=== PATIENT | male | born 1980 | race Caucasian/White ===

== ENCOUNTER 2018-07-24 07:50 | Emergency (ER) | payer MEDICAID ==
[~2018-07-24] VITALS: Ht 175.3 cm; Wt 125.0 kg
[2018-07-24 08:02] VITALS: Ht 175.3 cm; Wt 125.0 kg
[2018-07-24 08:37] LABS: APPEARANCE CLEAR (CLEAR); BILIRUBIN NEGATIVE (NEGATIVE); COLOR YELLOW (YELLOW); GLUCOSE NEGATIVE (NEGATIVE); KETONE NEGATIVE (NEGATIVE); NITRITE NEGATIVE (NEGATIVE); PROTEIN NEGATIVE (NEGATIVE); RED CELLS - URINE 0-5 /hpf (0-5); UROBILINOGEN NORMAL (NORMAL); WHITE CELLS - URINE RARE /hpf (0-5)
[2018-07-24 09:14] LABS: BASOPHILS 0.1 % (0-2); EOSINOPHILS 0.4 % (0-7); HEMOGLOBIN 16.4 g/dL (13.5-17.5); IMMATURE GRANULOCYTES 0.3 % (0-5); LYMPHOCYTES 13.9 % (15-50); MCH 30.1 pg (26.0-34.0); MCHC 35.7 g/dL (31.0-37.0); MCV 84.6 fL (80.0-100.0); MEAN PLATELET VOLUME 10.1 fL (7.4-10.4); MONOCYTES 4.3 % (2-11); PLATELET COUNT 173 10x3/uL (130-400); RBC 5.44 10x6/uL (4.20-6.10); RDW 12.9 % (11.5-14.5); WBC 7.7 10x3/uL (4.8-10.8)
[2018-07-24 09:47] LABS: ALBUMIN 3.6 g/dL (3.4-5.0); ANION GAP 13.8 mmol/L (8-16); BILIRUBIN - TOTAL 0.39 mg/dL (0.2-1.3); CALCIUM 8.8 mg/dL (8.5-10.1); CARBON DIOXIDE 25.7 mmol/L (21.0-32.0); CREATININE - SERUM 1.2 mg/dL (0.6-1.3); POTASSIUM - SERUM 4.5 mmol/L (3.5-5.1); PROTEIN - SERUM 7.6 g/dL (6.4-8.2)
[2018-07-24] MEDS ORDERED: HYDROCODON-ACE1 EAC7 PO (11:07)
[2018-07-24 11:28] VITALS: BP 160/80
== END 2018-07-24 11:29 | disposition home or self-care (01) ==
LOC: D.ER 07:50
PROVIDERS: Family Medicine
DX: N20.1 Calculus of ureter (principal); R73.9 Hyperglycemia, unspecified

== ENCOUNTER 2018-07-29 12:33 | Observation (INO) | payer MEDICAID ==
[~2018-07-29] VITALS: Ht 177.8 cm; Wt 122.7 kg
--- NOTE | ~2018-07-29 | OP ---
PATIENT NAME: NICHELLE MCCAIN MEDICAL RECORD: [id number] :81 LOCATION:D. D.1210 ADMISSION DATE:07/29/18 SURGEON: LÓPEZ JOINER MD DATE OF OPERATION: 07/29/2018 SURGEON: López Joiner MD ANESTHESIA: General anesthesia by Parker Salter CRNA. DIAGNOSIS: Left proximal ureteral 6-mm stone. PROCEDURES: Cystoscopy, left retrograde pyelogram, left ureteroscopy, and left ureteral stent insertion 6-Slovak x 24-cm with string attached. FINDINGS: Radiodense proximal ureteral stone 6 mm. Stone migrated back into the kidney. BLOOD LOSS: None. CLINICAL HISTORY: This is a 38-year-old male, who has had a previous history of kidney stones treated by Dr. Pérez. This was 8 years ago. One week ago, he came to the Emergency Room with acute left flank pain. He had a CT scan, which showed a 6-mm stone in the proximal left ureter. There is also a small punctate nonobstructing left renal stone. He came back to the Emergency Room today with more pain. He was not given imaging, but instead he was brought into the hospital for pain control. I obtained a KUB and this showed that the stone had not migrated from its previous location at all. He did eat lunch, which consisted of pizza and a salad at 11 o'clock today. Therefore, we had to wait 8 hours in order to perform surgery. He has consented to have left ureteroscopy and stone extraction with left ureteral stent insertion. He was given Ancef theater set production designer to the OR. DESCRIPTION OF PROCEDURE: The patient was given induction of general anesthesia. He was placed in dorsal lithotomy position and prepped and draped. The urethral meatus is somewhat tight and I used male sounds to dilate the urethral meatus to 24-Slovak. I was then able to insert a 21-Slovak cystoscope with 30-degree lens. There are no penile urethral strictures. Prostate is nonobstructive. Going into the bladder, he has single ureteral orifices with no bladder tumors. The stone was visible as a radiodensity at the level of L2. We injected with contrast in retrograde fashion to verify this. We then inserted a Sensor wire up against the stone. This ran up against the stone and with some difficulty, we managed to get the wire past the stone. We then dilated the left ureteral orifice with an 18-Slovak x 4-cm ureteral dilation balloon. The ureter was dilated to 12 atmospheres of pressure for a few seconds and then the balloon was deflated and removed entirely. We then switched over to the rigid ureteroscope. Going up along the ureter. Following the Sensor wire, we came to the location of the stone as outlined previously. Here, I then noticed that the stone had migrated into the kidney during my attempt to pass the wire beyond the stone proximally. Since we have a rigid scope and we are not able to get into the kidney, I decided to abandon further attempts at this late hour to try to get the stone. The ureteroscope was removed entirely. The wire was backloaded on to the cystoscope. Over the scope, we inserted the 6-Slovak x 24-cm left ureteral stent. With the stent in correct position, the wire was entirely withdrawn. The distal end was pushed into the bladder using a pusher. The bladder was entirely drained through the cystoscope sheath and then the scope OPERATIVE REPORT [id number] NICHELLE MCCAIN was removed. There is a string on the distal end of the stent, which hangs out of the urethra. It was tied to itself and cut shorter. The patient will be discharged home today with a script for ketorolac. He will be coming back for lithotripsy as an outpatient. TRANSINT:[id number] Voice Confirmation ID: [id number] DOCUMENT ID: [id number] LÓPEZ JOINER MD at 0932 CC: [id number] DICTATION DATE: 07/29/182105 TEST PILOT: 07/30/18 0149 DIS IN 07/29/18 [facility] [address] [place] [address]
[~2018-07-29 12:33] MED LIST: HYDROCODON-ACE1 EAC7 PO
[2018-07-29] MEDS ORDERED: ULTRAM50 MG PO (12:38)
[2018-07-29] MEDS ORDERED: ZOFRAN4 MG PO (12:38)
[2018-07-29 14:34] LABS: BASOPHILS 0.1 % (0-2); EOSINOPHILS 2.6 % (0-7); HEMATOCRIT 38.4 % (42.0-54.0); HEMOGLOBIN 13.8 g/dL (13.5-17.5); IMMATURE GRANULOCYTES 0.1 % (0-5); MCH 30.3 pg (26.0-34.0); MCHC 35.9 g/dL (31.0-37.0); MCV 84.4 fL (80.0-100.0); MEAN PLATELET VOLUME 10.1 fL (7.4-10.4); MONOCYTES 5.6 % (2-11); NEUTROPHILS 74.6 % (40-80); PLATELET COUNT 202 10x3/uL (130-400); RBC 4.55 10x6/uL (4.20-6.10); RDW 12.6 % (11.5-14.5); WBC 8.8 10x3/uL (4.8-10.8)
[2018-07-29 14:47] LABS: INR 1.07 (0.85-1.17); PROTIME 13.4 SECONDS (11.6-15.0)
[2018-07-29 14:51] LABS: APPEARANCE CLEAR (CLEAR); BILIRUBIN NEGATIVE (NEGATIVE); COLOR YELLOW (YELLOW); GLUCOSE 500 mg/dL (NEGATIVE); KETONE NEGATIVE (NEGATIVE); NITRITE NEGATIVE (NEGATIVE); PROTEIN NEGATIVE (NEGATIVE); RED CELLS - URINE NONE SEEN /hpf (0-5); UROBILINOGEN NORMAL (NORMAL); WHITE CELLS - URINE NSEEN /hpf (0-5)
[2018-07-29 14:53] LABS: ALBUMIN 3.2 g/dL (3.4-5.0); ANION GAP 12.4 mmol/L (8-16); BILIRUBIN - TOTAL 0.33 mg/dL (0.2-1.3); CALCIUM 8.7 mg/dL (8.5-10.1); CARBON DIOXIDE 24.4 mmol/L (21.0-32.0); CREATININE - SERUM 1.9 mg/dL (0.6-1.3); POTASSIUM - SERUM 3.8 mmol/L (3.5-5.1); PROTEIN - SERUM 7.6 g/dL (6.4-8.2)
[2018-07-29 19:29] VITALS: BP 152/81; Ht 177.8 cm; Wt 122.7 kg
[2018-07-29] MEDS ORDERED: TORADOL10 MG PO (22:56)
== END 2018-07-29 23:05 | disposition home or self-care (01) ==
LOC: D.ER 12:33 → D.EDHOLD 14:56 → OBSVTIME 14:57 → D.M3 16:37
PROVIDERS: Emergency Medicine
DX: N20.1 Calculus of ureter (principal)

== ENCOUNTER 2018-08-05 10:33 | Day surgery (SDC) | payer MEDICAID ==
[~2018-08-05] VITALS: Ht 177.8 cm; Wt 125.9 kg
--- NOTE | ~2018-08-05 | OP ---
PATIENT NAME: NICHELLE MCCAIN MEDICAL RECORD: [id number] :81 LOCATION:D.OPS ADMISSION DATE: SURGEON: LÓPEZ JOINER MD DATE OF OPERATION: 08/05/2018 SURGEON: López Joiner MD ANESTHESIA: TIVA by Odalis Raymond CRNA DIAGNOSIS: Left 6-mm renal stone. PROCEDURE: Left ESWL times 3000 shocks. FINDINGS: Radiodense stone. SPECIMENS: None. BLOOD LOSS: None. CLINICAL HISTORY: This is a 38-year-old male with a left renal stone. He has a left ureteral stent inserted. HE IS ALLERGIC TO CODEINE AND FLOMAX. He was given Ancef on-call to the OR today. Today, we are treating his stone with lithotripsy. DESCRIPTION OF PROCEDURE: The patient was given IV sedation. He was placed on the treatment table. The stone was identified in 2 planes and 3000 shocks were given to it. It was seen to partly break up. I will see him back in 2 weeks' time with a KUB to see how much of the stone he has lost. TRANSINT:[id number] Voice Confirmation ID: [id number] DOCUMENT ID: [id number] LÓPEZ JOINER MD at 0812 CC: [id number] DICTATION DATE: 08/05/18 145 STATION INSTALLER AND REPAIRER: 08/05/18 1752 [facility] 08/05/[address] [facility] [address] [place] [address]
[~2018-08-05 10:33] MED LIST changes: +TORADOL10 MG PO; +ULTRAM50 MG PO; +ZOFRAN4 MG PO
[2018-08-05] MEDS ORDERED: NORCO 5/325 TAB1 TAB PO (11:06)
[2018-08-05 11:07] VITALS: BP 131/79; Ht 177.8 cm; Wt 125.9 kg
== END 2018-08-05 15:30 | disposition home or self-care (01) ==
LOC: D.OPS 10:33
DX: N20.0 Calculus of kidney (principal); Z01.812 Encounter for preprocedural laboratory examination

== ENCOUNTER → 2018-08-25 13:31 | Outpatient (CLI) | payer MEDICAID ==
[2018-08-05 11:07] VITALS: BMI 39.8
[~2018-08-25 13:31] MED LIST changes: +NORCO 5/325 TAB1 TAB PO
== END | disposition home or self-care (01) ==
LOC: D.RAD 08:45
DX: N20.0 Calculus of kidney (principal)

== ENCOUNTER 2018-09-02 10:47 | Day surgery (SDC) | payer MEDICAID ==
[~2018-09-02] VITALS: Ht 177.8 cm; Wt 127.0 kg
[2018-09-02 11:26] VITALS: BP 131/86; Ht 177.8 cm; Wt 127.0 kg
--- NOTE | 2018-09-02 14:27 | OP ---
PATIENT NAME: NICHELLE MCCAIN MEDICAL RECORD: [id number] :81 LOCATION:DINGE ADMISSION DATE: SURGEON: AIDA JOINER MD DATE OF OPERATION: 09/02/2018 SURGEON: Aida Joiner MD ANESTHESIA: TIVA by Odalis Raymond CRNA DIAGNOSIS: A 6-mm left lower pole renal stone. PROCEDURE: Left ESWL times 3000 shocks. FINDINGS: Radiodense renal stone. BLOOD LOSS: None. CLINICAL HISTORY: This is a 38-year-old male, who has a history of kidney stones. He presented with flank pain from a left renal stone. He had a ureteral stent inserted and he had lithotripsy given to him. On followup KUB, he still has a fragment of the stone in the kidney. He comes today to have this fragment retreated. HE IS ALLERGIC TO CODEINE AND FLOMAX. He was given Ancef website optimization strategist to the OR. He does have a left ureteral stent and he finds a lot of irritation from the stent. He wants to have the stent removed today, which we will do later today. DESCRIPTION OF PROCEDURE: The patient was given IV Ancef website optimization strategist to the OR. He was placed on the treatment table. The stone was visualized and targeted in 2 planes. A 3000 shocks were given to the stone. The stone was seen to spread out indicating that it had been fragmented. The patient was brought back to the preoperative holding area. Later today, I will perform cystoscopy and ureteral stents removal. TRANSINT:[id number] Voice Confirmation ID: [id number] DOCUMENT ID: [id number] AIDA JOINER MD at 1427 CC: [id number] DICTATION DATE: 09/02/18 1233 TUFTING MACHINE FIXER: 09/02/[address] [facility] [address] [place] [address]
--- NOTE | 2018-09-02 18:23 | OP ---
PATIENT NAME: NICHELLE MCCAIN MEDICAL RECORD: [id number] :81 LOCATION:D.OPS ADMISSION DATE: SURGEON: LÓPEZ JOINER MD DATE OF OPERATION: 09/02/2018 SURGEON: López Joiner MD ANESTHESIA: TIVA by Alejandro Lozano CRNA PROCEDURES: Cystoscopy and removal of left ureteral stent. DIAGNOSIS: Retained left ureteral stent. BLOOD LOSS: None. CLINICAL HISTORY: This is a 38-year-old male who has a history of kidney stones. He had a left ureteral stent placed and he had lithotripsy. He had another treatment with lithotripsy earlier this morning. He is unable to tolerate the stent and he wants to have it removed. The stent did have a string on it hanging out of the urethral meatus, but now the patient cannot find the string anymore. Therefore, we will be performing cystoscopy to remove the stent. DESCRIPTION OF PROCEDURE: The patient was given IV sedation. He was then placed in the dorsal lithotomy position and prepped and draped. One gram of Ancef IV was given to him. A 21-American cystoscope with 30-degree lens was used for visualization. The scope was bit too large for the urethral meatus and he had urethral meatus dilated to 24-American with sounds. The scope was then placed in. There were no urethral strictures. The prostate is not obstructive. The stent was identified and grasping forceps was used to completely remove the stent. I will see the patient back in followup in 2 weeks' time with a KUB to determine whether his stone burden has gone entirely. TRANSINT:[id number] Voice Confirmation ID: [id number] DOCUMENT ID: [id number] LÓPEZ JOINER MD at 1823 CC: [id number] DICTATION DATE: 09/02/18 1431 HAND BLOCKER: 09/02/18 1740 [facility] 09/02/18 [facility] [address] [place] [id number]
== END 2018-09-02 15:23 | disposition home or self-care (01) ==
LOC: D.OPS 10:47
DX: N20.0 Calculus of kidney (principal)